=== PATIENT | female | born 1995 | race Two or more races ===

== ENCOUNTER 2022-12-04 01:14 | Emergency (ER) | payer OTHER ==
[~2022-12-04] VITALS: Ht 170.2 cm; Wt 75.7 kg
[2022-12-04 01:25] VITALS: BP 113/67
== END 2022-12-04 02:39 | disposition home or self-care (01) ==
LOC: ER 01:15
DX: S61.012A Laceration without foreign body of left thumb without damage to nail, initial encounter (principal); W26.0XXA Contact with knife, initial encounter; Y93.89 Activity, other specified; Y92.89 Other specified places as the place of occurrence of the external cause; Y99.8 Other external cause status
CPT/HCPCS: 12001